=== PATIENT | female | born 1990 | race Two or more races ===

== ENCOUNTER 2023-01-04 11:18 | Emergency (ER) | payer MEDICAID, OTHER ==
[~2023-01-04] VITALS: Ht 160 cm; Wt 93.0 kg
--- NOTE | 2023-01-04 12:00 | NUR ---
Patient AOx4 able to express her concerns. Patient states pain on left abdominal area. No signs of distress or discomfort. Discussed plan of car, patient verbalized agreement.
--- NOTE | 2023-01-04 12:10 | NUR ---
Blood collected, sent to lab.
[2023-01-04 12:32] LABS: BASOPHILS % (AUTO) 0.5 % (0.0-2.0); EOSINOPHILS % (AUTO) 1.7 % (0.0-6.0); HEMATOCRIT 44 % (33-45); HEMOGLOBIN 14.4 g/dL (11.5-14.8); LYMPHOCYTES # (AUTO) 2.7 K/uL (0.8-4.8); LYMPHOCYTES % (AUTO) 27.3 % (20.0-44.0); MEAN CORPUSCULAR HGB CONC 33 g/dl (31.0-36.0); MEAN CORPUSCULAR VOLUME 92 fL (82-100); MONOCYTES # (AUTO) 0.6 K/uL (0.1-1.30); MONOCYTES % (AUTO) 6.6 % (2.0-12.0); NEUTROPHILS # (AUTO) 6.3 K/uL (1.8-8.9); NEUTROPHILS % (AUTO) 63.9 % (43.0-81.0); PLATELET COUNT (AUTO) 393 K/uL (150-450); WHITE BLOOD COUNT (AUTO) 9.9 K/uL (4.3-11.0)
[2023-01-04 12:35] LABS: BILIRUBIN,URINE NEGATIVE (NEGATIVE); COLOR,URINE YELLOW (YELLOW); LEUKOCYTE ESTERASE ,URINE NEGATIVE (NEGATIVE); NITRITE, URINE NEGATIVE (NEGATIVE); PH,URINE 6.5 (5.0-8.0); PROTEIN,URINE NEGATIVE (NEGATIVE); UGLUCOSE NEGATIVE (NEGATIVE); UROBILINOGEN,URINE 0.2 EU/dL (0.2)
[2023-01-04 13:01] LABS: CALCIUM, SERUM 9.5 mg/dL (8.5-10.1); CREATININE 0.7 mg/dL (0.6-1.3); POTASSIUM 3.6 mmol/L (3.5-5.1)
[2023-01-04 13:07] LABS: BILIRUBIN,TOTAL 0.3 mg/dL (0.2-1.0); TOTAL PROTEIN, SERUM 7.8 g/dL (6.4-8.2)
[2023-01-04 13:54] LABS: BILIRUBIN,DIRECT 0.1 mg/dL (0.0-0.2)
[2023-01-04] MEDS ORDERED: MORPHINE SULFATE INJ 2 MG/ML DISP.SYRIN IV ONE (14:00)
[2023-01-04] MEDS ORDERED: ONDANSETRON HCL/PF 4 MG/2 ML VIAL IV ONE (14:00)
[2023-01-04] MEDS ORDERED: MORPHINE SULFATE INJ 4 MG/ML DISP.SYRIN ONE (14:33)
[2023-01-04] MEDS ORDERED: ONDANSETRON HCL/PF 4 MG/2 ML VIAL ONE (14:33)
[2023-01-04] MEDS ORDERED: IBUP-1955 PO (15:17)
[2023-01-04 15:36] VITALS: BP 128/74
== END 2023-01-04 15:37 | disposition home or self-care (01) ==
LOC: ER 11:22
DX: K52.9 Noninfective gastroenteritis and colitis, unspecified (principal); N80.03 Adenomyosis of the uterus; N83.202 Unspecified ovarian cyst, left side; R10.32 Left lower quadrant pain; E11.9 Type 2 diabetes mellitus without complications
CPT/HCPCS: 99285; 74176; 96374; 76856; 96375; 85025; 80048; 80076; 81003; 36415; 85730; 86850; 84702; J2270; J2405

== ENCOUNTER 2023-02-03 13:11 | Emergency (ER) | payer OTHER ==
[~2023-02-03] VITALS: Ht 160 cm; Wt 93.0 kg
[~2023-02-03 13:11] MED LIST: IBUP-1955 PO
--- NOTE | 2023-02-03 13:21 | NUR ---
BIBS C/O LOWER ABDOMINAL PAIN SINCE THIS MORNING. STATED SHE HAS NOT HAD HER PERIOD FOR A COUPLE WEEKS. AWAITING MD SCHILLING.
--- NOTE | 2023-02-03 13:32 | NUR ---
URINE COLLECTED AND SENT
[2023-02-03 13:44] LABS: BILIRUBIN,URINE NEGATIVE (NEGATIVE); COLOR,URINE YELLOW (YELLOW); LEUKOCYTE ESTERASE ,URINE TRACE (NEGATIVE); NITRITE, URINE NEGATIVE (NEGATIVE); PROTEIN,URINE TRACE mg/dl (NEGATIVE); UGLUCOSE NEGATIVE (NEGATIVE); UROBILINOGEN,URINE 0.2 EU/dL (0.2)
[2023-02-03 13:46] LABS: BACTERIA,URINE Rare /HPF (None Seen); SQUAMOUS EPITHELIAL CELL,UR Few /HPF (None Seen); WBC,URINE 0-2 /HPF (0-3)
--- NOTE | 2023-02-03 13:49 | NUR ---
IV ESTABLISHED R AC 20G. LABS DRAWN AND SENT
[2023-02-03 14:02] LABS: BASOPHILS # (AUTO) 0.1 K/uL (0.0-0.2); BASOPHILS % (AUTO) 0.5 % (0.0-2.0); EOSINOPHILS % (AUTO) 0.8 % (0.0-6.0); HEMATOCRIT 42 % (33-45); HEMOGLOBIN 13.8 g/dL (11.5-14.8); LYMPHOCYTES # (AUTO) 2.2 K/uL (0.8-4.8); LYMPHOCYTES % (AUTO) 19.7 % (20.0-44.0); MEAN CORPUSCULAR HGB CONC 33 g/dl (31.0-36.0); MEAN CORPUSCULAR VOLUME 89 fL (82-100); MONOCYTES # (AUTO) 0.4 K/uL (0.1-1.30); MONOCYTES % (AUTO) 4.1 % (2.0-12.0); NEUTROPHILS # (AUTO) 8.2 K/uL (1.8-8.9); NEUTROPHILS % (AUTO) 74.9 % (43.0-81.0); PLATELET COUNT (AUTO) 386 K/uL (150-450); RED BLOOD CELL COUNT(AUTO) 4.69 MIL/uL (4.0-5.2)
[2023-02-03 14:29] LABS: CALCIUM, SERUM 9.3 mg/dL (8.5-10.1); CREATININE 0.7 mg/dL (0.6-1.3); POTASSIUM 3.4 mmol/L (3.5-5.1)
[2023-02-03 14:37] LABS: ALBUMIN 3.9 g/dL (3.4-5.0); BILIRUBIN,DIRECT 0.1 mg/dL (0.0-0.2); BILIRUBIN,TOTAL 0.3 mg/dL (0.2-1.0); TOTAL PROTEIN, SERUM 7.8 g/dL (6.4-8.2)
[2023-02-03] MEDS ORDERED: NITR100C6 PO (16:35)
[2023-02-03 16:54] VITALS: BP 143/75
--- NOTE | 2023-02-03 16:54 | NUR ---
IV removed. Catheter intact and site benign. Pressure and 4x4 applied to site. No bleeding noted.Patient discharged to home in stable condition. Written and verbal after care instructions given. Patient verbalizes understanding of instruction.
== END 2023-02-03 16:55 | disposition home or self-care (01) ==
LOC: ER 13:15
DX: O34.80 Maternal care for other abnormalities of pelvic organs, unspecified trimester (principal); N83.202 Unspecified ovarian cyst, left side; O23.40 Unspecified infection of urinary tract in pregnancy, unspecified trimester; N39.0 Urinary tract infection, site not specified; O26.899 Other specified pregnancy related conditions, unspecified trimester; R10.2 Pelvic and perineal pain; M79.7 Fibromyalgia; E11.9 Type 2 diabetes mellitus without complications; Z3A.00 Weeks of gestation of pregnancy not specified
CPT/HCPCS: 36415; 76805-TC; 80048-TC; 80076-TC; 81001; 84702-TC; 84703-TC; 85025-TC